=== PATIENT | female | born 1970 | race Caucasian/White ===

== ENCOUNTER 2020-11-08 11:20 | Day surgery (SDC) | payer BC ==
[2020-11-08] VITALS (9 sets, daily range): BP systolic 89–110; BP diastolic 52–66
[~2020-11-08] VITALS: Ht 172.7 cm; Wt 78.2 kg
[2020-11-08] MEDS ORDERED: diphenhydrAMINE 25mg capsule PO PRN (11:55)
[2020-11-08] MEDS ORDERED: normal saline 1,000 ML IV SCH (11:55)
[2020-11-08] MEDS ORDERED: LIDOcaine/PRILOcaine 5gm cream TP ONE (11:55)
[2020-11-08] MEDS ORDERED: LORazepam 0.5 MG tablet PO PRN (11:55)
[2020-11-08] MEDS ORDERED: fentaNYL/PF 50MCG/1 ML 2ML syringe ONE (12:00)
[2020-11-08] MEDS ORDERED: midazolam 1 mg/ML 2ml injection ONE (12:00)
[2020-11-08] MEDS ORDERED: LIDOcaine 1% (10mg/ml)w/preservative injection 20ml MDV ONE (12:00)
[2020-11-08] MEDS ORDERED: iohexol 350MG/ML 100ml bottle IV ONE (12:00)
[2020-11-08] MEDS ORDERED: ESTRADIOL CREAM (12:35)
[2020-11-08] MEDS ORDERED: FLONASE (12:35)
[2020-11-08] MEDS ORDERED: MECO10005 (12:35)
[2020-11-08] MEDS ORDERED: ATOR20TA66 PO (12:35)
[2020-11-08] MEDS ORDERED: CHOL20002 PO (12:35)
[2020-11-08] MEDS ORDERED: OMEG1CAP21 PO (12:35)
[2020-11-08] MEDS ORDERED: verapamil 2.5 mg/ml inj IV ONE (13:01)
[2020-11-08] MEDS ORDERED: heparin 1,000unit/ml 10ml vial 10 ML ONE (13:01)
[2020-11-08] MEDS ORDERED: nitroGLYCERIN-Tridil 50MG/D5W 250 ML IV ONE (13:01)
[2020-11-08] MEDS ORDERED: nitroGLYCERIN 0.4mg SUBLingual tab SL ONE (13:03)
[2020-11-08] MEDS ORDERED: ketorolac tromethamine 15mg/ml inj. IV ONE (14:10)
[2020-11-08] MEDS ORDERED: HYDROcodone/acetaminophen 10/325mg tab PO PRN (14:15)
[2020-11-08] MEDS ORDERED: ondansetron/PF 4mg/2ml inj IV PRN (14:15)
[2020-11-08] MEDS ORDERED: HYDROcodone/acetaminophen 5mg/325mg tablet PO PRN (14:15)
[2020-11-08] MEDS ORDERED: proCHLORperazine 10 MG/2 ml inj IV PRN (14:15)
[2020-11-08] MEDS ORDERED: nitroGLYCERIN 0.4mg SUBLingual tab SL PRN (14:15)
[2020-11-08] MEDS ORDERED: OXAZEpam 15mg capsule PO PRN (14:15)
== END 2020-11-08 17:00 | disposition home or self-care (01) ==
LOC: SSTAY O 11:20
PROVIDERS: ATTEND Internal Medicine Interventional Cardiology
DX: R94.39 Abnormal result of other cardiovascular function study (principal); R07.2 Precordial pain; I10 Essential (primary) hypertension; I47.9 Paroxysmal tachycardia, unspecified; E78.5 Hyperlipidemia, unspecified; Z79.899 Other long term (current) drug therapy; Z88.2 Allergy status to sulfonamides; Z88.5 Allergy status to narcotic agent; Z98.890 Other specified postprocedural states; Z72.89 Other problems related to lifestyle; Z82.49 Family history of ischemic heart disease and other diseases of the circulatory system; Z82.3 Family history of stroke
CPT/HCPCS: 93005; 93458; 99152; C1769; C1894; J1644; J1885; J2001; J2250; J3010; J7030; Q0163; Q9967; A4620; J3490